=== PATIENT | male | born 1995 | race American Indian/Alaskan Native ===

== ENCOUNTER 2022-05-05 17:32 | Emergency (ER) | payer SELFPAY ==
--- NOTE | 2022-05-05 22:24 | Emergency Department Report ---
ED General Adult HPI - General Chief complaint: Skin Rash Stated complaint: OUTBREAK Source: patient Mode of arrival: Ambulatory Limitations: No Limitations - History of Present Illness Initial comments: Patient is a 27-year-old -[place] male with no past medical history who presents to the ED with complaint of acute onset persistent diffuse itchy mild erythematous dry scaly rashes for the last 1 week. Patient states that these rashes have significantly increased and worsened with itching in the last 3 days. Patient states that initially he had thought that these rashes were from acute allergic reaction but got scared when they started spreading all over his body. Patient denies fever, chills, nausea and vomiting, dizziness, syncope, traumatic injury, shortness of breath, chest pain or swollen lips or tongue. MD Complaint: Diffuse itchy dry scally rashes -: Gradual, week(s) (1) Location: chest, back, upper extremity, lower extremity Radiation: non-radiation Severity scale (0 -10): 7 Quality: burning, aching, sharp Consistency: constant Improves with: none Worsens with: none Associated Symptoms: denies other symptoms, rash (Diffuse itchy mild erythematous dry scaly rashes). denies: confusion, chest pain, cough, diaphoresis, fever/chills, headaches, loss of appetite, malaise, nausea/vomiting, shortness of breath, syncope, weakness Treatments Prior to Arrival: none - Related Data Previous Rx's Medication Instructions Recorded Last Taken Type Terbinafine (Nf) [LamiSIL] 250 mg PO QDAY #21 tablet 05/05/22 Unknown Rx diphenhydrAMINE [Benadryl CAP] 25 mg PO Q6HR PRN #40 capsule 05/05/22 Unknown Rx Allergies Allergy/AdvReac Type Severity Reaction Status Date / Time No Known Allergies Allergy Verified 05/05/22 19:45 ED Review of Systems ROS: Stated complaint: OUTBREAK Other details as noted in HPI Constitutional: denies: chills, fever Eyes: denies: eye pain, eye discharge, vision change ENT: denies: ear pain, throat pain Respiratory: denies: cough, shortness of breath, wheezing Cardiovascular: denies: chest pain, palpitations Endocrine: no symptoms reported Gastrointestinal: denies: abdominal pain, nausea, diarrhea Genitourinary: denies: urgency, dysuria Musculoskeletal: denies: back pain, joint swelling, arthralgia Skin: rash (Diffuse itchy mild erythematous maculopapular dry scaly rashes), change in color, pruritus. denies: lesions Neurological: denies: headache, weakness, paresthesias Psychiatric: denies: anxiety, depression Hematological/Lymphatic: denies: easy bleeding, easy bruising ED Past Medical Hx - Medications Home Medications: Home Medications Medication Instructions Recorded Confirmed Last Taken Type Terbinafine (Nf) [LamiSIL] 250 mg PO QDAY #21 tablet 05/05/22 Unknown Rx diphenhydrAMINE [Benadryl CAP] 25 mg PO Q6HR PRN #40 capsule 05/05/22 Unknown Rx ED Physical Exam - General Limitations: No Limitations General appearance: alert, in no apparent distress - Head Head exam: Present: atraumatic, normocephalic, normal inspection - Eye Eye exam: Present: normal appearance, PERRL, EOMI Pupils: Present: normal accommodation - ENT ENT exam: Present: normal exam, normal orophraynx, mucous membranes moist, TM's normal bilaterally, normal external ear exam - Neck Neck exam: Present: normal inspection, full ROM. Absent: tenderness - Respiratory Respiratory exam: Present: normal lung sounds bilaterally. Absent: respiratory distress, wheezes, rales, rhonchi, chest wall tenderness, accessory muscle use, decreased breath sounds, prolonged expiratory - Cardiovascular Cardiovascular Exam: Present: regular rate, normal rhythm, normal heart sounds. Absent: systolic murmur, diastolic murmur, rubs, gallop - GI/Abdominal GI/Abdominal exam: Present: soft, normal bowel sounds. Absent: tenderness, guarding, rebound, hyperactive bowel sounds, hypoactive bowel sounds, organomegaly, mass - Extremities Exam Extremities exam: Present: normal inspection, full ROM, normal capillary refill. Absent: tenderness - Back Exam Back exam: Present: normal inspection, full ROM. Absent: tenderness, CVA tenderness (R), CVA tenderness (L), muscle spasm, paraspinal tenderness, vertebral tenderness - Neurological Exam Neurological exam: Present: alert, oriented X3, CN II-XII intact, normal gait, reflexes normal - Psychiatric Psychiatric exam: Present: normal affect, normal mood - Skin Skin exam: Present: warm, dry, intact, normal color, rash (Diffuse erythematous maculopapular dry scaly rashes), erythema. Absent: petechiae, pallor, abrasion ED Course Vital Signs 05/05/22 19:46 Temperature 98.6 F Pulse Rate 82 Respiratory 18 Rate Blood Pressure 140/83 O2 Sat by Pulse 99 Oximetry ED Medical Decision Making - Medical Decision Making This is a 27-year-old -[place] male with no past medical history who presents to the ED with complaint of acute onset persistent diffuse itchy mild erythematous dry scaly rashes for the last 1 week. Patient states that these rashes have significantly increased and worsened with itching in the last 3 days. Patient states that initially he had thought that these rashes were from acute allergic reaction but got scared when they started spreading all over his body. In the ED, patient is alert and oriented x3 and is not in any distress. Patient is hemodynamically stable. Based on the history and physical exam findings, the patient symptoms are likely due to tinea corporis. Patient was discharged home on medications and advised to follow-up with his primary care physician in 7 to 10 days for reevaluation or return to the ED immediately if symptoms get worse. - Differential Diagnosis tinea corporis; allergic reaction; urticaria; cellulitis Critical care attestation.: If time is entered above; I have spent that time in minutes in the direct care of this critically ill patient, excluding procedure time. ED Disposition Clinical Impression: Tinea corporis, Itching with irritation Disposition: 01 HOME / SELF CARE / HOMELESS Is pt being admited?: No Does the pt Need Aspirin: No Condition: Stable Instructions: Pruritus, Body Ringworm Additional Instructions: Take medication with food, drink plenty of fluids, avoid alcohol consumption, and follow-up with your primary care physician in 7 to 10 days for reevaluation. Ensure that she use where or use fresh fabric every day to avoid recurrent reinfection. Return to the ED immediately if symptoms get worse Or if you develop right upper quadrant abdominal pain. Prescriptions: diphenhydrAMINE [Benadryl CAP] 25 mg PO Q6HR PRN #40 capsule PRN Reason: Itching Terbinafine (Nf) [LamiSIL] 250 mg PO QDAY #21 tablet Referrals: [facility] [Provider Group] - 7-10 days Forms: Work/School Release Form(ED) Time of Disposition: 22:23 Print Language: LITHUANIAN
[2022-05-06 00:40] VITALS: BP 144/87
== END 2022-05-06 00:40 | disposition home or self-care (01) ==
LOC: ED 17:32
DX: B35.4 Tinea corporis (principal); L29.9 Pruritus, unspecified
CPT/HCPCS: 99282